=== PATIENT | male | born 1995 | race Caucasian/White ===

== ENCOUNTER 2019-04-26 00:04 | Emergency (ER) | payer SELFPAY ==
[~2019-04-26] VITALS: Ht 185 cm; Wt 108.0 kg
[2019-04-26] MEDS ORDERED: RT-ALBUTEROL/IPRATROPIUM 3 ML (DUONEB) VIAL ONE (00:09)
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
[2019-04-26] MEDS ORDERED: predniSONE 20 MG TAB PO ONE (00:15)
[2019-04-26] MEDS ORDERED: RT-ALBUTEROL/IPRATROPIUM 3 ML (DUONEB) VIAL INH ONE (00:15)
[2019-04-26] MEDS ORDERED: PRD20T PO (00:20)
[2019-04-26] MEDS ORDERED: RT-ALBUINH IH (00:20)
[2019-04-26 00:38] VITALS: BP 135/88
== END 2019-04-26 00:38 | disposition home or self-care (01) ==
LOC: EDUNIT# 00:04 → ER FS 00:07
DX: J98.01 Acute bronchospasm (principal); T78.49XA Other allergy, initial encounter
CPT/HCPCS: 94640

== ENCOUNTER 2020-07-18 20:23 | Emergency (ER) | payer SELFPAY ==
[~2020-07-18] VITALS: Ht 188 cm; Wt 111.6 kg
[~2020-07-18 20:23] MED LIST: PRD20T PO; RT-ALBUINH IH
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
[2020-07-18] MEDS ORDERED: LIDOCAINE 1% INJ 20 ML 20 ML VIAL INJ STA (21:04)
--- NOTE | 2020-07-18 21:28 | Diagnostic Imaging Report ---
CLINICAL HISTORY: Smashed left 3rd digit. COMPARISON: None. TECHNIQUE: 3 views of the left hand. FINDINGS: There is no acute fracture or dislocation of the left hand. Alignment is anatomic. The imaged joint spaces are preserved. Soft tissue edema is noted in the left 3rd digit. IMPRESSION: No acute fracture or dislocation of the left hand. Edema is noted involving the left 3rd digit. Dictated by: Dictated on workstation # [id number]
[2020-07-18] MEDS ORDERED: RX-HYDROCODONE/APAP 5/325 MG #4 TAB PK PO PRN (21:45)
[2020-07-18] MEDS ORDERED: IBUP-1780 PO (21:45)
[2020-07-18 21:51] VITALS: BP 134/70
== END 2020-07-18 21:51 | disposition home or self-care (01) ==
LOC: EDUNIT# 20:23 → ER FS 20:24
DX: S60.032A Contusion of left middle finger without damage to nail, initial encounter (principal); S67.193A Crushing injury of left middle finger, initial encounter; J45.909 Unspecified asthma, uncomplicated; F17.210 Nicotine dependence, cigarettes, uncomplicated; Z79.52 Long term (current) use of systemic steroids; W19.XXXA Unspecified fall, initial encounter
CPT/HCPCS: 29130; 64450; 73140

== ENCOUNTER 2020-11-25 09:24 | Emergency (ER) | payer OTHER, MEDICAID ==
[~2020-11-25] VITALS: Ht 187.9 cm; Wt 117.3 kg
[~2020-11-25 09:24] MED LIST changes: +IBUP-1780 PO
--- NOTE | 2020-11-25 09:55 | ED General ---
General Stated Complaint: WC LUCINDA HAND TINGLING Source of Information: Patient History of Present Illness Date Seen by Provider: Nov 25, 2020 Time Seen by Provider: 09:27 Initial Comments 25 yo male presenting from work at [employer] due to tingling and numbness in fingers of both hands, left greater than right side. He states that he had a fall on November 14 when he tripped over a cart with metal stacked on it while he was carrying some metal. He had stab wound and laceration to RUQ abdomen, tailbone and back contusion, left arm lateral contusion by elbow. He was seen by the urgent care for this as a work comp injury. He states that he has been continuing to have some pain especially in the tailbone. He still has a bruise and swelling to the left lateral forearm by his elbow that is tender to palpation. He denies hitting his head or losing consciousness. He states he does have some neck pain. He does repetitive work with his hands at [employer]. He is right-hand dominant. He denies having any numbness or tingling in his hands or fingers prior to the last few days. When he mentioned it to work the felt that it was related to his work comp issue and referred him to urgent care. Urgent care said he had already been seen once by them so he would have to go to Dr. Hamilton. He has an appointment at [facility] this afternoon with Dr. Hamilton but when he contacted the clinic they told him he needed to come to the ED due to the tingling in his fingers. He denies any new injury at work but states this weekend he did have pain in his tailbone that caused his hip and knee to lock up on left side and he fell to his knees resulting in an abrasion to his kneecap area on left knee. He has been taking prednisone and nabumetone since the injury November 14. 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) Allergies and Home Medications Allergies Coded Allergies: No Known Drug Allergies (Unverified , 04/26/19) Home Medications Albuterol Sulfate 1 Puff Puff, 2 PUFF IH Q4H 1 PUFF = 90 MCG Prescribed by: DAGOBERTO ZAIDI on 04/26/1919 Ibuprofen 800 Mg Tablet, 800 MG PO Q8H PRN for PAIN Prescribed by: DIYA MACKEY on 07/18/202144 Prednisone 20 Mg Tab, 40 MG PO DAILY Prescribed by: DAGOBERTO ZAIDI on 04/26/1919 Patient Home Medication List Home Medication List Reviewed: Yes Review of Systems Review of Systems Constitutional: no symptoms reported EENTM: no symptoms reported Respiratory: no symptoms reported Cardiovascular: no symptoms reported Gastrointestinal: no symptoms reported Genitourinary: no symptoms reported Musculoskeletal: see HPI Skin: see HPI, change in color (healing bruise with swelling and tenderness to left lateral proximal forearm by elbow, abrasion over left kneecap, healing laceration to RUQ abdomen) Psychiatric/Neurological: Tingling (in bilateral hands, mainly pinky and ring fingers. Left side worse than right side.) Hematologic/Lymphatic: See HPI Past Pjawcct-Bpsdjj-Ofijoi Hx Past Med/Social Hx: Reviewed Nursing Past Med/Soc Hx Patient Social History 2nd Hand Smoke Exposure: Yes Recent Hopitalizations: No Past Medical History Surgeries: No Respiratory: Yes Asthma Cardiac: No Neurological: No Genitourinary: No Gastrointestinal: No Musculoskeletal: No Endocrine: No HEENT: No Cancer: No Psychosocial: No Integumentary: No Blood Disorders: No Physical Exam Vital Signs Vital Signs - First Documented 11/25/20 09:28 Temp 36.2 Pulse 86 Resp 16 B/P (MAP) 139/83 (101) Pulse Ox 97 O2 Delivery Room Air Capillary Refill : Height, Weight, BMI Height: '" Weight: lbs. oz. kg; 31.00 BMI Method: General Appearance: No Apparent Distress, WD/WN HEENT: PERRL/EOMI Neck: Full Range of Motion, Supple, Tender Lateral, Tender Midline (cervical spine and trapezius muscles with spasm. no step off or crepitus. palpation made him hunch his shoulders and try to jerk away from my palpation) Respiratory: Chest Non Tender, Lungs Clear, Normal Breath Sounds, No Accessory Muscle Use, No Respiratory Distress Cardiovascular: Regular Rate, Rhythm, Normal Peripheral Pulses Back: Muscle Spasm (cervical and trapezius muscles upper back/thoracic area), Vertebral Tenderness (cervical and upper thoracic) Extremity: Normal Capillary Refill, Normal Range of Motion, No Calf Tenderness, No Pedal Edema, Swelling (with healing bruise to left lateral proximal forearm that is tender to palpation) Neurologic/Psychiatric: Alert, Oriented x3, Normal Mood/Affect, runner worker II-XII Norm as Tested, Other (positive ledy's and tinel's test) Skin: Warm/Dry, Ecchymosis (left lateral proximal forearm by elbow) Progress/Results/Core Measures Suspected Sepsis SIRS Temperature: Pulse: Respiratory Rate: Blood Pressure / Mean: Results/Orders My Orders Orders - DIYA MACKEY MD Forearm 2 View Left (11/25/20 09:42) Ct Cervical Spine Wo (11/25/20 09:42) Ct Thoracic Spine Wo (11/25/20 ) Ed Ortho/Other Supplies Order (11/25/20 10:38) Orthopedic Equiment (11/25/20 10:38) Vital Signs/I&O 11/25/20 11/25/20 09:28 10:55 Temp 36.2 36.1 Pulse 86 65 Resp 16 16 B/P (MAP) 139/83 (101) 109/76 (101) Pulse Ox 97 97 O2 Delivery Room Air Capillary Refill : Progress Note #1: Progress Note Patient complains of numbness and tingling in his fingers left greater than right and concern by patient that this might be related to his fall at work will obtain x-rays of the left forearm where he has the hematoma and CT scan of the cervical and thoracic spine to evaluate for fracture or cord compression. Progress Note #2: Progress Note Imaging does not show any acute fracture or dislocation. He does have some bilateral maxillary mucous buildup. Counseled on follow-up and return precautions. Advised that this certainly could still be carpal tunnel and will try treating with bilateral cock up wrist splints. Check with Dr. Hamilton this afternoon as scheduled and he may want to order other testing such as EMG or MRI to evaluate for carpal tunnel syndrome. Diagnostic Imaging Diagonstic Imaging: Xray Plain Films/CT/US/NM/MRI: forearm Comments [facility]. [place], [place] NAME: NICK ORELLANA JR [facility] REC#: [id number] PT STATUS: DEP ER : 1995 PHYSICIAN: DIYA MACKEY MD ADMIT DATE: 11/25/20/ER FS Signed Date of Exam:11/25/20 FOREARM 2 VIEW LEFT INDICATION: Left forearm injury. FINDINGS: 2 views of left forearm show no fracture, dislocation or other acute abnormalities. IMPRESSION: Negative left forearm. Dictated by: Dictated on workstation # [id number] Dict: 11/25/20 1017 Trans: 11/25/20 1111 [id number] Interpreted by: ALAINA CAMACHO MD Electronically signed by: ALAINA CAMACHO MD 11/25/20 1111 Diagonstic Imaging: CT Plain Films/CT/US/NM/MRI: c-spine (and Thoracic spine) Comments [facility] [place] [place] NAME: NICK ORELLANA [facility] REC#: [id number] PT STATUS: DEP ER : 1995 PHYSICIAN: DIYA MACKEY MD ADMIT DATE: 11/25/20/ER FS Signed Date of Exam:11/25/20 CT THORACIC SPINE WO PROCEDURE: CT thoracic spine without contrast. TECHNIQUE: Multiple axial computerized tomography images were obtained from the base of the thoracic spine to the vertex without intravenous contrast. Auto Exposure Controls were utilized during the CT exam to meet ALARA standards for radiation dose reduction. INDICATION: Tingling in both hands post fall on 11/14/2020. CORRELATION STUDY: None FINDINGS: There is very minimal rightward curvature of the thoracic spine. The alignment otherwise anatomic. Thoracic vertebral body heights are maintained. No acute fracture or compression deformity. Posterior limits are intact and in normal alignment. There are areas of very mild disc space narrowing present. There is no significant osseous encroachment of the canal and/or foramina. IMPRESSION: 1. Negative for acute bony abnormality thoracic spine. Alignment anatomic. If further assessment desired, MRI would be recommended. Dictated by: Dictated on workstation # [id number] Dict: 11/25/20 1024 Trans: 11/25/20 1125 CVB [id number] Interpreted by: ELE DELGADO DO Electronically signed by: ELE DELGADO DO 11/25/20 1125 [facility] [place] [place] NAME: NICK ORELLANA JR [facility] REC#: [id number] PT STATUS: REG ER : 1995 PHYSICIAN: DIYA MACKEY MD ADMIT DATE: 11/25/20/ER FS Draft Date of Exam:11/25/20 CT CERVICAL SPINE WO CLINICAL INDICATION: Patient with tingling in both hands status post fall on 11/14/2020. EXAM: Axial CT scan of the cervical spine performed without IV contrast. Sagittal and coronal reformatted images are created. Auto Exposure Controls were utilized during the CT exam to meet ALARA standards for radiation dose reduction. COMPARISON: None. FINDINGS: There is no evidence of acute cervical spine fracture or dislocation. There are mild hypertrophic spurs involving the C5-C6 level with the appearance of anterior and posterior disk spurs. There is no significant central spinal canal or neural foramen narrowing. There is no significant neck soft tissue abnormality. Visualized upper lung calvo are clear. There is small to moderate amount of lobulated mucosal thickening involving both maxillary sinuses. IMPRESSION: 1: There is no evidence of acute cervical spine fracture or dislocation. 2: There is degenerative disease at the C5-C6 level. 3: Bilateral maxillary sinus disease. Dictated on workstation # [id number] Dict: 11/25/20 1006 Trans: 11/25/20 1013 [facility] [id number] Interpreted by: FAINA PALOMARES MD Electronically signed by: Departure Impression Primary Impression: Numbness and tingling in both hands Additional Impressions: Traumatic hematoma of left forearm Qualified Codes: S50.12XD - Contusion of left forearm, subsequent encounter Sinus congestion Disposition: 01 HOME, SELF-CARE Condition: Stable Departure-Patient Inst. Decision time for Depature: 10:31 Referrals: CORNELL HAMILTON MD (PCP/Family) Primary Care Physician Patient Instructions: Carpal Tunnel Syndrome (DC), Hand Numbness, Minor Contusion ED, Paresthesia (DC), Chronic Sinusitis Add. Discharge Instructions: Your imaging studies today do not show any fractures or spinal cord injury. Keep your appointment with Dr. Hamilton this afternoon for your Workman's Comp injury You could have irritation and inflammation of the nerves in your hands and do have some findings consistent with Carpal Tunnel Syndrome. Wear wrist splints until seen by your doctor and they may want to do additional testing to further check and evaluate this. It also looked like you had some mucus and congestion in your sinuses in your cheeks on the CT scan of your cervical spine. This may be from allergies but if you develop fever, purulent drainage from your sinuses or have sinus pain then your doctor may treat this. Otherwise taking Mucinex to help thin out the mucus and you could use nasal steroid spray such as Nasonex or Flonase over the counter to help with drainage of the mucus from your sinuses. Work/School Note: Work Release Form Date Seen in the Emergency Department: Nov 25, 2020 Return to Work: Nov 26, 2020 Restrictions: Follow Up With [facility] Other Restrictions Listed Below: See Dr. Hamilton today as scheduled. Wear splints for wrist support DIYA MACKEY MD Nov 25, 2020 09:55
--- NOTE | 2020-11-25 10:13 | Diagnostic Imaging Report ---
CLINICAL INDICATION: Patient with tingling in both hands status post fall on 11/14/2020. EXAM: Axial CT scan of the cervical spine performed without IV contrast. Sagittal and coronal reformatted images are created. Auto Exposure Controls were utilized during the CT exam to meet ALARA standards for radiation dose reduction. COMPARISON: None. FINDINGS: There is no evidence of acute cervical spine fracture or dislocation. There are mild hypertrophic spurs involving the C5-C6 level with the appearance of anterior and posterior disk spurs. There is no significant central spinal canal or neural foramen narrowing. There is no significant neck soft tissue abnormality. Visualized upper lung calvo are clear. There is small to moderate amount of lobulated mucosal thickening involving both maxillary sinuses. IMPRESSION: 1: There is no evidence of acute cervical spine fracture or dislocation. 2: There is degenerative disease at the C5-C6 level. 3: Bilateral maxillary sinus disease. Dictated by: Dictated on workstation # [id number]
--- NOTE | 2020-11-25 10:19 | Diagnostic Imaging Report ---
INDICATION: Left forearm injury. FINDINGS: 2 views of left forearm show no fracture, dislocation or other acute abnormalities. IMPRESSION: Negative left forearm. Dictated by: Dictated on workstation # [id number]
--- NOTE | 2020-11-25 10:28 | Diagnostic Imaging Report ---
PROCEDURE: CT thoracic spine without contrast. TECHNIQUE: Multiple axial computerized tomography images were obtained from the base of the thoracic spine to the vertex without intravenous contrast. Auto Exposure Controls were utilized during the CT exam to meet ALARA standards for radiation dose reduction. INDICATION: Tingling in both hands post fall on 11/14/2020. CORRELATION STUDY: None FINDINGS: There is very minimal rightward curvature of the thoracic spine. The alignment otherwise anatomic. Thoracic vertebral body heights are maintained. No acute fracture or compression deformity. Posterior limits are intact and in normal alignment. There are areas of very mild disc space narrowing present. There is no significant osseous encroachment of the canal and/or foramina. IMPRESSION: 1. Negative for acute bony abnormality thoracic spine. Alignment anatomic. If further assessment desired, MRI would be recommended. Dictated by: Dictated on workstation # [id number]
[2020-11-25 10:55] VITALS: BP 109/76
[2020-11-25] MEDS ORDERED: NABU-95 (11:13)
== END 2020-11-25 10:55 | disposition home or self-care (01) ==
LOC: EDUNIT# 09:24 → ER FS 09:28
DX: S31.110A Laceration without foreign body of abdominal wall, right upper quadrant without penetration into peritoneal cavity, initial encounter (principal); S50.12XA Contusion of left forearm, initial encounter; S50.02XA Contusion of left elbow, initial encounter; R20.0 Anesthesia of skin; R09.81 Nasal congestion; J45.909 Unspecified asthma, uncomplicated; Z77.22 Contact with and (suspected) exposure to environmental tobacco smoke (acute) (chronic); Z79.52 Long term (current) use of systemic steroids; W01.0XXA Fall on same level from slipping, tripping and stumbling without subsequent striking against object, initial encounter
CPT/HCPCS: 72125; 72128